=== PATIENT | female | born 1970 | race Caucasian/White ===

== ENCOUNTER 2019-02-19 14:41 | Emergency (ER) | payer OTHER, SELFPAY ==
[2019-02-19 14:44] VITALS: BP 124/74; PULSE 67; RESP 20; TEMP 36.7; O2SAT 100; BMI 27.2
--- NOTE | 2019-02-19 14:50 | DI.RAD.S_ITS ---
PROCEDURE: XR CHEST 2V INDICATIONS: shortness of breath TECHNIQUE: 2 views of the chest were acquired. COMPARISON: None. FINDINGS: Surgical changes and devices: None. Lungs and pleura: Lungs are clear. No pleural effusions or pneumothorax. Mediastinum: Mediastinal contours are normal. Heart size is normal. Bones and chest wall: No suspicious bony abnormalities. Soft tissues appear unremarkable. IMPRESSION: No acute cardiopulmonary disease. Dictated by: Rosita Suero M.D. on 02/19/2019 at 16:00 Approved by: Rosita Suero M.D. on 02/19/2019 at 16:00
[2019-02-19 15:08] VITALS: BP 126/40; PULSE 64; RESP 17; O2SAT 100
--- NOTE | 2019-02-19 15:22 | ED_ITS ---
HPI - SOB/Dyspnea General Chief Complaint: Shortness of Breath/Dyspnea Stated Complaint: SOB Time Seen by Provider: 02/19/19 14:54 Source: patient Mode of arrival: Ambulatory Limitations: no limitations History of Present Illness HPI Narrative: 48-year-old female here for evaluation of dyspnea on exertion. States that has been going on for the past several weeks for really noticed it over the past couple days. No chest pain. She states she has been anemic in the past. Has been told that she needed to be on iron however stop taking iron several months ago. Has never had any lung testing for. No prior cardiac diagnosis. Related Data Home Medications Medication Instructions Recorded Confirmed [IRON] 25 mg PO SEE INSTRUCTIONS #0 07/23/12 Previous Rx's Medication Instructions Recorded clindamycin phosphate 1 % TOPICAL QDAY #60 ml 04/24/12 fluconazole [Diflucan] 150 mg PO AMINS #2 07/23/12 albuterol sulfate 2 puff INHALATION Q4-6H PRN #18 02/19/19 gram Allergies Allergy/AdvReac Type Severity Reaction Status Date / Time Latex Allergy Severe BLISTERING Uncoded 09/04/17 12:01 RASH Penicillin Allergy Severe RASH Uncoded 09/04/17 12:01 Review of Systems Constitutional Constitutional: Denies chills, Denies fever(s), Denies lethargy and Denies weakness Cardiovascular Cardiovascular: Denies chest pain, Denies dyspnea and Reports dyspnea on exertion Respiratory Respiratory: Denies dyspnea and Reports dyspnea on exertion Gastrointestinal Gastrointestinal: Denies nausea and Denies vomiting Genitourinary Genitourinary: Denies dysuria Musculoskeletal Musculoskeletal: Denies back pain and Denies myalgias Integumentary/Breasts Skin/Breast: Denies lesions and Denies rash Neurologic Neurologic: Denies behavioral changes and Denies weakness Psychiatric Psychiatric: Denies behavioral changes Hematologic/Lymphatic Hematologic/Lymphatic: Denies easy bleeding and Denies easy bruising [facility] Medical History Anemia (Acute) Social History Smoking Status: Never smoker Social History Smoking Status: Never smoker Exam Initial Vital Signs Initial Vital Signs: Vital Signs Temperature 98.1 F 02/19/19 14:44 Pulse Rate 67 02/19/19 14:44 Respiratory Rate 20 02/19/19 14:44 Blood Pressure 124/74 02/19/19 14:44 Pulse Oximetry 100 02/19/19 14:44 Const General: cooperative, comfortable and well developed Orientation: alert and awake HENMT Head: normal to inspection and normocephalic Resp Effort & Inspection: normal respiratory effort Auscultation: clear to auscultation bilaterally Cardio Rate: regular rate Rhythm: regular rhythm Pulses: radial pulses present GI Inspection: non-distended Palpation: No firm Skin Lesions: no lesions Rashes: no rashes Neuro General: alert and awake Cognition: normal cognition Speech: speech normal Gait: normal gait Extrem General: normal to inspection, capillary refill normal and No edema Psych Appearance: grossly normal and well kempt Course Orders Ordered: ED Orders 02/19/19 14:50 XR chest 2V Stat EKG-12 Lead Stat Measure peak expiratory flow ONCE RT Consult Eval and Treat Now 02/19/19 15:32 B Type Natriuretic Peptide Stat Complete Blood Count AUTO DIFF Stat Comprehensive Metabolic Panel Stat Lactate (Lactic Acid) Stat Troponin I Stat Vital Signs Vital signs: Vital Signs - 8 hr 02/19/19 14:44 02/19/19 15:08 02/19/19 16:38 Temperature 98.1 F Pulse Rate 67 64 65 Respiratory Rate 20 17 16 Blood Pressure 124/74 Blood Pressure [Right Arm] 126/40 L 109/66 Pulse Oximetry 100 100 100 02/19/19 16:55 Temperature Pulse Rate 60 Respiratory Rate 14 Blood Pressure 109/66 Blood Pressure [Right Arm] Pulse Oximetry 100 MDM - SOB/Dyspnea Lab Data Attestation: I reviewed the patient's lab results. Result diagrams: 02/19/19 15:32 02/19/19 15:32 Labs: Lab Results 02/19/19 02/19/19 02/19/19 Range/Units 15:32 15:32 15:32 WBC 7.0 (4.5-11.0) X10^3/uL RBC 4.35 (4.0-5.2) X10^6/uL Hgb 11.6 L (12.0-16.0) g/dL Hct 35.3 L (36-46) % MCV 81.3 (80-100) fL MCH 26.6 (26-34) PG MCHC 32.8 (30-36) % RDW 17.4 H (11.6-14.8) % Plt Count 271 (150-400) X10^3/uL Neut % (Auto) 73.4 (50-75) % Lymph % (Auto) 17.1 L (25-40) % Lanier % (Auto) 7.4 (3-14) % Eos % (Auto) 1.1 L (2-4) % Baso % (Auto) 1.0 (0-2) % Neut # (Auto) 5100 (4386-3173) /uL Lymph # (Auto) 1200 (4039-0319) /uL Lanier # (Auto) 500 (0-900) /uL Eos # (Auto) 100 (0-450) /uL Baso # (Auto) 100 (0-100) /uL Sodium 140 (137-145) mmol/L Potassium 4.0 (3.4-5.1) mmol/L Chloride 106 (98-107) mmol/L Carbon Dioxide 24 (22-32) mmol/L BUN 12 (7-17) mg/dL Creatinine 0.80 (0.52-1.04) mg/dL Estimated GFR > 60.0 (>60) mL/min BUN/Creatinine Ratio 15.0 (6-22) Glucose 95 (70-100) mg/dL Lactate 0.9 (0.7-2.1) mmol/L Calcium 9.6 (8.4-10.2) mg/dL Total Bilirubin 0.5 (0.2-1.3) mg/dL AST 20 (14-36) IU/L ALT 10 (9-52) IU/L Alkaline Phosphatase 47 (38-126) U/L Troponin I (0.01-0.034) ng/mL B-Natriuretic Peptide (<100) Total Protein 7.4 (6.3-8.2) g/dL Albumin 4.5 (3.5-5.0) g/dL Globulin 2.9 (1.7-4.1) g/dL Albumin/Globulin Ratio 1.6 (1.0-2.8) 02/19/19 02/19/19 Range/Units 15:32 15:32 WBC (4.5-11.0) X10^3/uL RBC (4.0-5.2) X10^6/uL Hgb (12.0-16.0) g/dL Hct (36-46) % MCV (80-100) fL MCH (26-34) PG MCHC (30-36) % RDW (11.6-14.8) % Plt Count (150-400) X10^3/uL Neut % (Auto) (50-75) % Lymph % (Auto) (25-40) % Lanier % (Auto) (3-14) % Eos % (Auto) (2-4) % Baso % (Auto) (0-2) % Neut # (Auto) (0437-7558) /uL Lymph # (Auto) (8827-1681) /uL Lanier # (Auto) (0-900) /uL Eos # (Auto) (0-450) /uL Baso # (Auto) (0-100) /uL Sodium (137-145) mmol/L Potassium (3.4-5.1) mmol/L Chloride (98-107) mmol/L Carbon Dioxide (22-32) mmol/L BUN (7-17) mg/dL Creatinine (0.52-1.04) mg/dL Estimated GFR (>60) mL/min BUN/Creatinine Ratio (6-22) Glucose (70-100) mg/dL Lactate (0.7-2.1) mmol/L Calcium (8.4-10.2) mg/dL Total Bilirubin (0.2-1.3) mg/dL AST (14-36) IU/L ALT (9-52) IU/L Alkaline Phosphatase (38-126) U/L Troponin I < 0.012 (0.01-0.034) ng/mL B-Natriuretic Peptide < 100 (<100) Total Protein (6.3-8.2) g/dL Albumin (3.5-5.0) g/dL Globulin (1.7-4.1) g/dL Albumin/Globulin Ratio (1.0-2.8) Imaging Data Chest x-ray: Radiologist's impression: [address] [address] XRay Report Signed Patient: Eula Brewer CMR#: [id number] : 1970Acct:[id number] Age/Sex: 48 / FDate of Service: 02/19/19 Loc: ED Accession Number: [id number] Procedure: XR chest 2V Ordering Provider: Tino Patel D.O. PROCEDURE: XR CHEST 2V INDICATIONS: shortness of breath TECHNIQUE: 2 views of the chest were acquired. COMPARISON: None. FINDINGS: Surgical changes and devices: None. Lungs and pleura: Lungs are clear. No pleural effusions or pneumothorax. Mediastinum: Mediastinal contours are normal. Heart size is normal. Bones and chest wall: No suspicious bony abnormalities. Soft tissues appear unremarkable. IMPRESSION: No acute cardiopulmonary disease. Dictated by: Rosita Suero M.D. on 02/19/2019 at 16:00 Approved by: Rosita Suero M.D. on 02/19/2019 at 16:00 ECG Data Attestation: I personally reviewed and interpreted this ECG as follows: Prior ECG tracings: not available for review Interpretation: Sinus rhythm Ventricular rate is 65 Be interval 117 milliseconds Normal QRS Normal QTC No ST T wave changes MDM Narrative Medical decision making narrative: Patient has no signs of pneumonia, no signs of CHF, low suspicion for ACS, low suspicion for PE, patient is not anemic. Other labs are unremarkable. I do have low concern for emergent condition. No indication for antibiotics. No indication for further workup here in the ER. I have the patient follow up with her primary provider. She was given return precautions and follow-up instructions. She expressed understanding and agreement with plan. Discharge Plan Departure Patient Disposition: Home Clinical Impression: Shortness of Breath Discharge Date/Time: 02/19/19 16:56 Instructions: DI for Shortness of Breath Activity Restrictions/Additional Instructions: I do recommend that you try an [id number] decongestant such as Claritin or Caitlin or Zyrtec. You can buy the generic versions of these medications. Also use the inhaler as needed. Contact your primary provider to discuss the indica tions for referral to have pulmonary function tests if her symptoms do not improve. Prescriptions: New albuterol sulfate 90 mcg/actuation HFA aerosol inhaler 2 puff INHALATION Q4-6H PRN (Reason: shortness of breath) Qty: 18 RF: 0 No Action clindamycin phosphate 1 % solution 1 % Topical QDAY Qty: 60 RF: 3 [IRON] 25 mg PO SEE INSTRUCTIONS Qty: 0 RF: 0 fluconazole [Diflucan] 150 MG tablet 150 mg PO AMINS Qty: 2 RF: 1 Referrals: Shanice Mark PA-C [Primary Care Provider] -
[2019-02-19 15:40] LABS: Add Manual Diff / Slide Review NO; Basophils Absolute Auto 100 /uL (0-100); Eosinophils Absolute Auto 100 /uL (0-450); Eosinophils Percent Auto 1.1 % (2-4); Hematocrit 35.3 % (36-46); Hemoglobin 11.6 g/dL (12.0-16.0); Lymphocytes Absolute Auto 1200 /uL (1100-4500); Lymphocytes Percent Auto 17.1 % (25-40); Mean Corpuscular HGB Conc 32.8 % (30-36); Mean Corpuscular Hemoglobin 26.6 PG (26-34); Mean Corpuscular Volume 81.3 fL (80-100); Monocytes Absolute Auto 500 /uL (0-900); Monocytes Percent Auto 7.4 % (3-14); Neutrophils Absolute Auto 5100 /uL (1500-7000); Neutrophils Percent Auto 73.4 % (50-75); Platelet Count 271 X10^3/uL (150-400); Red Blood Cell Count 4.35 X10^6/uL (4.0-5.2); Red Cell Distribution Width 17.4 % (11.6-14.8)
[2019-02-19 15:57] LABS: Lactate (Lactic Acid) 0.9 mmol/L (0.7-2.1)
[2019-02-19 16:00] LABS: Alanine Aminotransferase 10 IU/L (9-52); Albumin 4.5 g/dL (3.5-5.0); Albumin Globulin Ratio 1.6 (1.0-2.8); Alkaline Phosphatase 47 U/L (38-126); Aspartate Aminotransferase 20 IU/L (14-36); Bilirubin Total 0.5 mg/dL (0.2-1.3); Blood Urea Nitrogen 12 mg/dL (7-17); Calcium 9.6 mg/dL (8.4-10.2); Carbon Dioxide 24 mmol/L (22-32); Chloride 106 mmol/L (98-107); Estimated Glomerular Filt Rate > 60.0 mL/min (>60); Globulin 2.9 g/dL (1.7-4.1); Glucose 95 mg/dL (70-100); HEMOLYSIS < 15 (0-50); Sodium 140 mmol/L (137-145); Total Protein 7.4 g/dL (6.3-8.2)
[2019-02-19 16:06] LABS: B Type Natriuretic Peptide < 100 (<100)
[2019-02-19 16:09] LABS: Troponin I < 0.012 ng/mL (0.01-0.034)
[2019-02-19 16:38] VITALS: BP 109/66; PULSE 65; RESP 16; O2SAT 100
[2019-02-19 16:55] VITALS: BP 109/66; PULSE 60; RESP 14; O2SAT 100
== END 2019-02-19 16:56 | disposition home or self-care (01) ==
PROVIDERS: Emergency Provider Emergency Medicine; PCP Physician Assistant
DX: R06.02 Shortness of breath (principal)
CPT/HCPCS: 71046; 80053; 83605; 83880; 84484; 85025; 93005; 93010; 99282; 99285

== ENCOUNTER → 2019-09-15 14:49 | Outpatient (ROUT) | payer OTHER, SELFPAY ==
[2019-09-15 14:51] LABS: Bacteria Urine None Seen; RBC Urine None Seen (0-5/HPF)
[2019-09-15 14:54] LABS: Appearance Urine UA CLEAR; Bilirubin Urine UA NEGATIVE (NEGATIVE); Color Urine UA YELLOW; Glucose Urine UA NEGATIVE (Negative); Ketones Urine UA NEGATIVE (NEGATIVE); Leukocyte Esterase Urine UA NEGATIVE (NEGATIVE); Nitrite Urine UA NEGATIVE (Negative); Occult Blood Urine UA NEGATIVE (Negative); Protein Urine UA NEGATIVE (Negative); Specific Gravity Urine UA <=1.005 (1.000-1.035); Urobilinogen Urine UA 0.2 E.U./dL (0.2)
[2019-09-15 15:08] LABS: Culture Indicated Urine Cult Not Indicated; Urine Comments Microscopic Normal; WBC Urine 0-1/HPF (0-5/HPF); pH Urine UA 6.5 (4.5-8.0)
== END ==
PROVIDERS: Visit Provider Naturopath
DX: N39.0 Urinary tract infection, site not specified (principal)
CPT/HCPCS: 81001

== ENCOUNTER → 2019-11-25 15:31 | Outpatient (CLI) | payer OTHER, SELFPAY ==
[2019-11-25 16:09] LABS: Add Manual Diff / Slide Review NO; Basophils Absolute Auto 0 /uL (0-100); Basophils Percent Auto 0.4 % (0-2); Eosinophils Absolute Auto 100 /uL (0-450); Eosinophils Percent Auto 1.8 % (2-4); Hematocrit 37.4 % (36-46); Hemoglobin 12.6 g/dL (12.0-16.0); Lymphocytes Absolute Auto 1400 /uL (1100-4500); Lymphocytes Percent Auto 17.4 % (25-40); Mean Corpuscular HGB Conc 33.6 % (30-36); Mean Corpuscular Hemoglobin 29.2 PG (26-34); Mean Corpuscular Volume 86.9 fL (80-100); Monocytes Absolute Auto 700 /uL (0-900); Monocytes Percent Auto 8.5 % (3-14); Neutrophils Absolute Auto 5800 /uL (1500-7000); Neutrophils Percent Auto 71.9 % (50-75); Platelet Count 251 X10^3/uL (150-400); Red Cell Distribution Width 13.8 % (11.6-14.8); White Blood Cell Count 8.1 X10^3/uL (4.5-11.0)
[2019-11-25 18:01] LABS: Ferritin 12 ng/mL (11-264)
== END ==
PROVIDERS: PCP Naturopath; Referring Provider Naturopath; Visit Provider Naturopath
DX: D64.9 Anemia, unspecified (principal)
CPT/HCPCS: 36415; 82728; 85025